=== PATIENT | female | born 1980 | race Caucasian/White ===

== ENCOUNTER 2021-03-14 23:02 | Emergency (ER) | payer MEDICAID ==
[~2021-03-14] VITALS: Ht 177.8 cm; Wt 85.4 kg
[2021-03-15 00:26] LABS: BASOPHILS % 0.5 % (0.0-2.0); EOSINOPHILS % 0.9 % (0.0-5.0); HEMATOCRIT. 38.5 % (36.0-48.0); HEMOGLOBIN. 12.7 g/dL (12.0-16.0); MEAN CORPUSCULAR HEMOGLOBIN 31.3 pg (28.0-32.0); MEAN CORPUSCULAR VOLUME 95.1 fL (81.0-99.0); MEAN PLATELET VOLUME 10.3 fl (7.4-10.4); MONOCYTES % 9.6 % (2.0-8.0); PLATELET 199 x1000/uL (130-400); RED BLOOD CELL COUNT 4.05 mill/uL (4.2-5.4); RED CELL DISTRIBUTION WIDTH 13.1 % (11.6-14.6)
[2021-03-15 00:34] LABS: CHLORIDE 110 mEq/L (98-107)
[2021-03-15 00:57] LABS: B-HCG QUANTITATIVE 1971 mIU/mL (<3)
[2021-03-15] MEDS ORDERED: RHO(D) IMMUNE GLOBULIN 300 MCG/SYR IM ONE (02:00)
[2021-03-15 04:00] VITALS: BP 109/71
== END 2021-03-15 05:05 | disposition home or self-care (01) ==
LOC: ER 23:02
DX: O20.0 Threatened abortion (principal); Z3A.01 Less than 8 weeks gestation of pregnancy; O09.511 Supervision of elderly primigravida, first trimester
CPT/HCPCS: 36415; 76801; 80053; 81025; 84702; 85025; 86850; 86900; 90384; 96372; 99285